=== PATIENT | male | born 1970 | race Hispanic/Latino ===

== ENCOUNTER → 2019-03-08 | Outpatient (CLI) | payer MEDICAID ==
[~2019-03-08] MED LIST: ASPI-1005 PO; CARV12.511 PO; CLOP75TA32 PO; FURO40TA5 PO; LISI2.5T2 PO; SIMV40TA59 PO; SPIR25TA6 PO; TYL3 PO
== END | disposition home or self-care (01) ==
LOC: SHCH 09:11
PROVIDERS: ATTEND Internal Medicine Cardiovascular Disease
DX: I08.0 Rheumatic disorders of both mitral and aortic valves (principal); I42.9 Cardiomyopathy, unspecified
CPT/HCPCS: 93306

== ENCOUNTER → 2021-01-14 | Outpatient (CLI) | payer MEDICAID ==
[~2021-01-14] VITALS: Ht 170.2 cm; Wt 87.1 kg
[~2021-01-14] MED LIST changes: +REGADENOSON 0.4 MG/5 ML PF SYG IVP SCH
== END | disposition home or self-care (01) ==
LOC: SHCH 07:42
PROVIDERS: ATTEND Internal Medicine Cardiovascular Disease
DX: I25.5 Ischemic cardiomyopathy (principal)
CPT/HCPCS: 78452; 93017; 96374; A9500 ×2; J2785